=== PATIENT | female | born 1945 | race African-American/Black ===

== ENCOUNTER 2016-10-29 18:12 | Emergency (ER) | payer OTHER, MEDICAID ==
[~2016-10-29] VITALS: Ht 154.9 cm; Wt 75.7 kg
[2016-10-29 20:53] VITALS: BP 194/101
== END 2016-10-29 20:53 | disposition home or self-care (01) ==
LOC: ED 18:12
DX: M54.5 Low back pain (principal); M47.9 Spondylosis, unspecified; I10 Essential (primary) hypertension; I67.1 Cerebral aneurysm, nonruptured; E05.00 Thyrotoxicosis with diffuse goiter without thyrotoxic crisis or storm; W18.30XA Fall on same level, unspecified, initial encounter; Y93.89 Activity, other specified; Y99.8 Other external cause status; Y92.89 Other specified places as the place of occurrence of the external cause
CPT/HCPCS: J2270; Q0162

== ENCOUNTER 2018-06-03 16:33 | Emergency (ER) | payer OTHER, MEDICAID ==
[~2018-06-03] VITALS: Ht 154.9 cm; Wt 67.1 kg
[2018-06-03 17:04] VITALS: Ht 154.9 cm; Wt 67.1 kg
[2018-06-03 19:45] VITALS: BP 113/65
== END 2018-06-03 19:45 | disposition home or self-care (01) ==
LOC: ED 16:33
DX: G89.29 Other chronic pain (principal); M54.5 Low back pain; I10 Essential (primary) hypertension; Z88.5 Allergy status to narcotic agent
CPT/HCPCS: J1885